=== PATIENT | male | born 1955 | race Caucasian/White ===

== ENCOUNTER → 2016-06-12 | Outpatient (CLI) | payer MEDICAID, OTHER ==
[~2016-06-12] MED LIST: DICL75TA PO; DILA100C PO; METH10TA PO; TYLETAB34 PO; XANA1TAB2 PO
--- NOTE | 2016-06-12 14:23 | RADRPT ---
EXAM DATE/TIME: 06/12/2016 13:49 [facility] COMPARISON: SHOULDER RIGHT COMPLETE (>2VWS), June 12, 2016, 13:43. INDICATIONS : Left shoulder pain. No known injury. MEDICAL HISTORY : Hepatitis. Hypertension. Neck cancer (w/ radiation treatment). SURGICAL HISTORY : None. ENCOUNTER: Initial ACUITY: 2 months PAIN SCORE: 6/10 LOCATION: Left shoulder FINDINGS: Multiple view examination of the left shoulder demonstrates no evidence of fracture or dislocation. The glenohumeral and acromioclavicular joints are maintained. There is normal range of motion betwee n internal and external rotation. Bony mineralization is normal. CONCLUSION: 1. No acute bony abnormality. Aldo De Santiago MD on June 12, 2016 at 14:21 Board Certified Radiologist. This report was verified electronically.
--- NOTE | 2016-06-12 14:23 | RADRPT ---
EXAM DATE/TIME: 06/12/2016 13:43 [facility] COMPARISON: CHEST SINGLE AP, April 05, 2016, 11:14. INDICATIONS : Right shoulder pain. No known injury. MEDICAL HISTORY : Hepatitis. Hypertension. Neck cancer (w/ radiation treatment). SURGICAL HISTORY : None. ENCOUNTER: Initial ACUITY: 2 months PAIN SCORE: 6/10 LOCATION: Right shoulder FINDINGS: Multiple view examination of the right shoulder demonstrates no evidence of fracture or dislocation. The glenohumeral and acromioclavicular joints are maintained. There is normal range of motion betwe en internal and external rotation. Bony mineralization is normal. CONCLUSION: 1. No acute bony abnormality. 2. [id number] in good position. Aldo De Santiago MD on June 12, 2016 at 14:21 Board Certified Radiologist. This report was verified electronically.
== END ==
LOC: HRAD 13:05
PROVIDERS: ATTEND Nurse Practitioner Family
DX: M25.511 Pain in right shoulder (principal); M25.512 Pain in left shoulder; C76.0 Malignant neoplasm of head, face and neck; Z92.3 Personal history of irradiation
CPT/HCPCS: 73030

== ENCOUNTER 2016-07-02 12:53 | Emergency (ER) | payer MEDICAID, OTHER ==
[~2016-07-02] VITALS: Ht 188 cm; Wt 67.0 kg
[~2016-07-02 12:53] MED LIST changes: -DICL75TA PO; -TYLETAB34 PO
[2016-07-02 12:55] VITALS: BP 161/84; PULSE 78; RESP 20; TEMP 98.8; O2SAT 96
[2016-07-02] MEDS ORDERED: ACETAMINOPHEN/HYDROcodone 325 MG/5 MG TAB PO ONE (13:45)
--- NOTE | 2016-07-02 14:04 | RADRPT ---
EXAM DATE/TIME: 07/02/2016 14:00 [facility] COMPARISON: SHOULDER RIGHT COMPLETE (>2VWS), June 12, 2016, 13:43. INDICATIONS : Right shoulder pain, fell MEDICAL HISTORY : Hypertension. Carcinoma, esophageal. Chronic obstructive pulmonary disease. SURGICAL HISTORY : Tonsillectomy. Infusaport ENCOUNTER: Initial ACUITY: 1 day PAIN SCORE: 5/10 LOCATION: Right Shoulder FINDINGS: Multiple view examination of the right shoulder demonstrates no evidence of fracture or dislocation. The glenohumeral and acromioclavicular joints are maintained. There is good alignment of the [facility]. There is normal range of motion between internal and external rotation. Bony mineralization is normal. No significant change compared to the prior study. Right Gnyzag-f-Vaim remains in place. CONCLUSION: 1. No acute fracture or joint dislocation. 2. No new significant changes compared to the prior exam. Carter Cruz MD on July 02, 2016 at 14:02 Board Certified Radiologist. This report was verified electronically.
[2016-07-02] MEDS ORDERED: TYLETAB34 PO (14:07)
[2016-07-02] MEDS ORDERED: DICL75TA PO (14:07)
--- NOTE | 2016-07-02 14:20 | PD ---
HPI Chief Complaint: Injury Time Seen by Provider: 14:15 Travel History International Travel<30 days: No Contact w/Intl Traveler<30days: No Traveled to known affect area: No History of Present Illness HPI 61-year-old male that presents to the ED for evaluation of trip and fall yesterday. Per patient he has a chronic history as well as a carcinoma of the neck. Patient follows with oncologist for this. Per patient he had a trip and fall at his home and he landed on his right shoulder. Per patient he only hit the wall. He did not hit his head or lose consciousness. Patient denies pain anywhere else. Per patient she's only concern is pain on the right shoulder. He denies any swelling or deformity. He is able to move it but has a lot of pain with abduction. Per patient the pain is 7 out of 10. Patient tells me that he takes no pain medications at this time. Pain gets worse with movement. Nothing seems to make the pain better or worse. This happened yesterday. He denies any head injury. No blood thinners. No chest pain or shortness of breath. No leg pain. No back pain or neck pain. PFSH Past Medical History Anxiety: Yes Depression: No Cancer: Yes (RIGHT NECK TUMOR) Cardiovascular Problems: No Chemotherapy: Yes (11/03/15) Diabetes: No Diminished Hearing: No Endocrine: No GERD: No Genitourinary: No Hepatitis: Yes Hiatal Hernia: No Hypertension: Yes Immune Disorder: No Implanted Vascular Access Dvce: Yes (RIGHT CHEST) Kidney Stones: No Musculoskeletal: Yes (CHRONIC BACK PAIN) Neurologic: No Psychiatric: No Reproductive: No Respiratory: No Radiation Therapy: Yes Renal Failure: No Thyroid Disease: No Ulcer: No Past Surgical History Abdominal Surgery: Yes (peg tube WITH REVERSAL) Body Medical Devices: NONE Cardiac Surgery: No Ear Surgery: No Endocrine Surgery: No Eye Surgery: No Genitourinary Surgery: No Oral Surgery: Yes Thoracic Surgery: No Tonsillectomy: Yes Social History Alcohol Use: No (SOCIALLY) Tobacco Use: Yes (1.5 PPD) Substance Use: No Allergies-Medications (Allergen,Severity, Reaction): Coded Allergies: No Known Allergies (Verified , 07/02/16) Reported Meds & Prescriptions Reported Meds & Active Scripts Active Tylenol-Codeine #3 (Acetaminophen-Codeine) 300-30 mg Tab 1 Tab PO Q4H PRN Diclofenac Sodium DR (Diclofenac Sodium) 75 Mg Tabdr 75 Mg PO BID PRN Dilantin (Phenytoin Extended) 100 Mg Cap 100 Mg PO TID Reported Xanax (Alprazolam) 1 Mg Tab 1 Mg PO Q8H PRN Methadone (Methadone HCl) 10 Mg Tab 10 Mg PO BID Review of Systems General / Constitutional: No: Fever, Chills, Weight Gain, Weight Loss, Other Eyes: No: Diploplia, Blurred Vision, Photophobia, Drainage, Redness, Foreign Body Sensation, Pain, Tearing, Blind Spots, Visual changes, Blindness, Other HENT: No: Headaches, Vertigo, Lightheadedness, Sore Throat, Rhinitis, Rhinorrhea, Congestion, Nosebleed, Neck Stiffness, Neck Pain, Masses, Gingival Bleeding, Dental Difficulties, Ear Discharge, Earache, Other Cardiovascular: No: Chest Pain or Discomfort, Palpitations, Irregular Rhythm, Tachycardia, Diaphoresis, Syncope, Dyspnea on exertion, Varicosities, Edema, Cyanosis, Varicosities, Phlebitis, Claudication, Other Respiratory: No: Cough, Shortness of Breath, Wheezing, Sneezing, Orthopnea, Hemoptysis, Stridor, Night Sweats, Pleuritic Pain, Other Gastrointestinal: No: Nausea, Vomiting, Diarrhea, Abdominal Pain, Hematemesis, Hematochezia, Constipation, Changes in Bowel Habits, Indigestion, Dysphagia, Loss of Appetite, Other Genitourinary: No: Urgency, Frequency, Dysuria, Nocturia, Hematuria, Decreased Urinary Output, Oliguria, Hesitancy, Dribbling, Incontinence, Pelvic Pain, Flank Pain, Dyspareunia, Discharge, Dysmenorrhea, Menorrhagia, Metorrhagia, Vaginal Bleeding, Other Musculoskeletal: Positive: Pain, No: Myalgias, Arthralgias, Limited ROM, Weakness, Cramping, Edema, Atrophy, Other Skin: No Rash, No Itching, No Dryness, No Lumps, No Hives, No Change in Pigmentation, No Change in nails, No Alopecia, No Lesions, No Breast Lumps, No Breast Tenderness, No Breast Swelling, No Other Neurologic: No: Weakness, Dizziness, Syncope, Focal Abnormalities, Coordination Problem, Tremor, Ataxia, Headache, Change in Mentation, Slurred Speech, Paresthesia, Incontinence, Seizures, Sensory Disturbance, Other Psychiatric: No: Anxiety, Depression, Suicidal Ideations, Disorder of Thought, Mood Disorder, Substance Abuse, Homicidal Ideation, Other Endocrine: No: Heat Intolerance, Cold Intolerance, Polyuria, Polydipsia, Other Hematologic/Lymphatic: No: Easy Bruising, Lymph Node Enlargement, Other Physical Exam Narrative GENERAL: SKIN: Warm and dry. HEAD: Atraumatic. Normocephalic. EYES: Pupils equal and round. No scleral icterus. No injection or drainage. ENT: No nasal bleeding or discharge. Mucous membranes pink and moist. NECK: Trachea midline. No JVD. CARDIOVASCULAR: Regular rate and rhythm. RESPIRATORY: No accessory muscle use. Clear to auscultation. Breath sounds equal bilaterally. GASTROINTESTINAL: Abdomen soft, non-tender, nondistended. Hepatic and splenic margins not palpable. MUSCULOSKELETAL: Extremities without clubbing, cyanosis, or edema. No obvious deformities. Patient has reproducible pain on the right shoulder. No obvious bruise or contusion noted. Patient has her producible pain with abduction on the right shoulder. No obvious deformity noted. No clavicular pain. No scaphoid pain. Pain starts after patient goes about 90 on abduction. Rotation internal and external causes some discomfort but not as bad as with abduction. 2+ pulses bilaterally. No lumbar, thoracic, cervical spine tenderness to palpation. No obvious pelvic bone tenderness to palpation. Full range of motion of the ankles and knees. NEUROLOGICAL: Awake and alert. No obvious cranial nerve deficits. Motor grossly within normal limits. Five out of 5 muscle strength in the arms and legs. Normal speech. PSYCHIATRIC: Appropriate mood and affect; insight and judgment normal. Data Data Last Documented VS Vital Signs Date Time Temp Pulse Resp B/P Pulse Ox O2 Delivery O2 Flow Rate FiO2 07/02/16 12:55 98.8 78 20 161/84 96 Room Air Orders Shoulder, Complete (>2vws) (07/02/16 ) Acetamin-Hydrocod 325-5 Mg (Gause 5-325 (07/02/16 13:45) MDM Medical Decision Making Medical Screen Exam Complete: Yes Emergency Medical Condition: Yes Medical Record Reviewed: Yes Interpretation(s) Last Impressions Shoulder X-Ray 07/02/16 0000 Signed Impressions: Service Date/Time: Saturday, July 02, 2016 14:00 - CONCLUSION: 1. No acute fracture or joint dislocation. 2. No new significant changes compared to the prior exam. Carter Cruz MD Differential Diagnosis Fracture versus sprain versus strain versus contusion versus normal exam Narrative Course 61-year-old male to presents to the ED for evaluation of right shoulder pain after fall. Patient was properly examined and was found to have signs and symptoms consistent with appears to be a contusion of the shoulder. 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 X-ray of was done and was negative for acute disease. Patient was reassured. Patient will be discharged home with prescriptions for, including and diclofenac sodium. Told to follow with PCP. See ED worsening symptoms. Ice or warm compresses. Diagnosis Primary Impression: Contusion of right shoulder Qualified Code: S40.011A - Contusion of right shoulder, initial encounter Patient Instructions: General Instructions Additional Instructions: Take medications as prescribed. Follow-up with PCP. See ED for any worsening symptoms. Do not drink or drive while taking pain medication. Apply ice or heat as needed for pain Med/Other Pt SpecificInfo: Prescription(s) given Scripts Acetaminophen-Codeine (Tylenol-Codeine #3)300-30 mg Tab1 Tab PO Q4H PRN (PAIN) # 12 TAB Ref 0 Prov:Red Field MD 07/02/[address] 75 Mg Tabdr75 Mg PO BID PRN (PAIN SCALE 1 TO 10) #10 TAB Prov:Red Field MD 07/02/16 Disposition: 01 DISCHARGE HOME Condition: Stable Alex Alonso Jul 02, 2016 14:20
== END 2016-07-02 14:32 | disposition home or self-care (01) ==
LOC: NEPB 12:53
DX: S40.011A Contusion of right shoulder, initial encounter (principal); C77.0 Secondary and unspecified malignant neoplasm of lymph nodes of head, face and neck; F41.8 Other specified anxiety disorders; I10 Essential (primary) hypertension; Z92.21 Personal history of antineoplastic chemotherapy; Z92.3 Personal history of irradiation; F17.210 Nicotine dependence, cigarettes, uncomplicated; W01.0XXA Fall on same level from slipping, tripping and stumbling without subsequent striking against object, initial encounter; Y92.009 Unspecified place in unspecified non-institutional (private) residence as the place of occurrence of the external cause
CPT/HCPCS: 73030; 99284

== ENCOUNTER → 2017-08-01 | Outpatient (CLI) | payer MEDICAID ==
[~2017-08-01] MED LIST changes: +DICL75TA PO; +TYLETAB34 PO
--- NOTE | 2017-08-01 18:41 | ECHRPT ---
Indication: PERICARDIAL EFFUSION CONCLUSIONS Normal left ventricular size. Mild concentric left ventricular hypertrophy. The left ventricular systolic function is hyperdynamic with an estimated ejection fraction in the ra nge of 65- 70%. BP: / HR: Rhythm: Sinus MEASUREMENTS (Male / Female) Normal Values Technical Quality:Fair 2D ECHO LV Diastolic Diameter PLAX 4.3 cm 4.2 - 5.9 / 3.9 - 5.3 cm LV Systolic Diameter PLAX 2.9 cm IVS Diastolic Thickness 1.2 cm 0.6 - 1.0 / 0.6 - 0.9 cm LVPW Diastolic Thickness 0.9 cm 0.6 - 1.0 / 0.6 - 0.9 cm LV Relative Wall Thickness 0.5 RV Internal Dim ED PLAX 3.2 cm LVOT Diameter 2.4 cm LA Systolic Diameter LX 4.2 cm 3.0 - 4.0 / 2.7 - 3.8 cm M-MODE Aortic Root Diameter MM 3.8 cm LA Systolic Diameter MM 3.7 cm LA Ao Ratio MM 1.0 AV Cusp Separation MM 1.8 cm DOPPLER AV Peak Velocity 130.0 cm/s AV Peak Gradient 6.8 mmHg LVOT Peak Velocity 108.0 cm/s LVOT Peak Gradient 4.7 mmHg AV Area Cont Eq pk 3.8 cm MV Area PHT 2.4 cm Mitral E Point Velocity 71.6 cm/s Mitral A Point Velocity 46.9 cm/s Mitral E to A Ratio 1.5 LV E' Lateral Velocity 13.5 cm/s Mitral E to LV E' Lateral Ratio 5.3 LV E' Septal Velocity 9.8 cm/s Mitral E to LV E' Septal Ratio 7.3 FINDINGS LEFT VENTRICLE Normal left ventricular size. Mild concentric left ventricular hypertrophy. The left ventricular systolic function is hyperdynamic with an estimated ejection fraction in the ra nge of 65- 70%. No evidence of pericardial effusion. RIGHT VENTRICLE Normal right ventricular size and systolic function. LEFT ATRIUM The left atrial size is mildly dilated. RIGHT ATRIUM The right atrial size is mildly dilated. ATRIAL SEPTUM No atrial level shunt is demonstrated by color flow Doppler interrogation. AORTA The aortic root and proximal ascending aorta are not well visualized. MITRAL VALVE Structurally normal mitral valve. No mitral valve stenosis or regurgitation. AORTIC VALVE Trileaflet aortic valve. No aortic valve stenosis or regurgitation. TRICUSPID VALVE Structurally normal tricuspid valve. No tricuspid valve stenosis or regurgitation. PULMONARY VALVE No pulmonary valve regurgitation or stenosis. VESSELS The inferior vena cava is normal in size. PERICARDIUM No pericardial effusion. Bev العلي MD, FACC (Electronically Signed) Final Date:01 August 2017 18:40
== END ==
LOC: HECH 08:57
DX: I31.3 Pericardial effusion (noninflammatory) (principal)
CPT/HCPCS: 93306